=== PATIENT | female | born 1960 | race Caucasian/White ===

== ENCOUNTER 2020-03-06 06:51 | Emergency (ER) | payer BC ==
[~2020-03-06] VITALS: Ht 162.6 cm; Wt 60.8 kg
[2020-03-06 06:57] VITALS: BP_SYST 120
--- NOTE | 2020-03-06 07:00 | NUR ---
Patient to ER bed 3 to gown for evaluation. Side rails up.
--- NOTE | 2020-03-06 07:20 | NUR ---
Pt came to ER after becoming weak and altered while in the shower does not report pain. Pt calm and cooperaitve, AO4, VSS, awaiting MD
--- NOTE | 2020-03-06 07:30 | NUR ---
ER at bedside examining patient.
[2020-03-06 07:47] LABS: BASOPHILS % (AUTO) 0.7 % (0.0-2.0); EOSINOPHILS % (AUTO) 0.2 % (0.0-4.0); HEMATOCRIT 37.3 % (36-48); HEMOGLOBIN 12.5 g/dL (12.0-16.0); LYMPHOCYTES # (AUTO) 1.5 K/uL (1.0-5.5); LYMPHOCYTES % (AUTO) 30.1 % (20.5-51.5); MEAN CORPUSCULAR HEMOGLOBIN 30 pg (27-31); MEAN CORPUSCULAR HGB CONC 34 % (32-36); MEAN CORPUSCULAR VOLUME 88 fL (79.0-98.0); MONOCYTES # (AUTO) 0.5 K/uL (0.0-1.0); MONOCYTES % (AUTO) 10.7 % (1.7-9.3); NEUTROPHILS % (AUTO) 58.3 % (40.0-70.0); PLATELET COUNT (AUTO) 157 K/uL (130-430); RED BLOOD CELL COUNT(AUTO) 4.23 MIL/uL (4.2-6.2); RED CELL DISTRIBUTION WIDTH 13.2 % (9.0-15.0); WHITE BLOOD COUNT (AUTO) 5.1 K/uL (4.8-10.8)
[2020-03-06] MEDS: NACL 0.9% 1,000 ML IV ONE (07:50)
[2020-03-06 07:56] LABS: CALCIUM 8.4 mg/dL (8.4-11.0); CREATININE 0.86 mg/dL (0.55-1.30); POTASSIUM 3.9 mmol/L (3.5-5.1)
[2020-03-06 08:02] LABS: ALBUMIN 3.4 g/dL (3.4-4.8); TOTAL BILIRUBIN 0.2 mg/dL (0.0-1.0)
[2020-03-06 11:30] VITALS: BP_SYST 120
--- NOTE | 2020-03-06 11:31 | NUR ---
Patient given written and verbal discharge instructions and verbalizes understanding. ER MD discussed with patient the results and treatment provided. Patient in stable condition. ID arm band removed. IV catheter removed intact and dressing applied, no active bleeding. Rx of NONE given. Patient educated on pain management and to follow up with PMD. Pain Scale 0/10 Opportunity for questions provided and answered. Medication side effect fact sheet provided.
== END 2020-03-06 11:31 | disposition home or self-care (01) ==
LOC: SED 06:51
DX: R55 Syncope and collapse (principal)
CPT/HCPCS: 36415; 70450; 71045; 76376; 80053; 83605; 84484; 85025; 96360; 99285; J7030

== ENCOUNTER 2022-09-01 08:22 | Day surgery (SDC) | payer BC ==
[2022-09-01] MEDS ORDERED: PROPOFOL 200MG/ 20ML VIAL (DIPRIVAN) IV ONE (09:49)
[2022-09-01] MEDS ORDERED: OFLOXACIN 0.3%, 5 ML EAR DROPS ONE (09:49)
[2022-09-01] MEDS ORDERED: LIDOCAINE 1% 10 MG/ML, 20 ML MDV ONE (09:49)
[2022-09-01] MEDS ORDERED: KETOROLAC TROMETHAMINE 30 MG VIAL ONE (09:49)
[2022-09-01] MEDS ORDERED: ONDANSETRON HCL 4 MG/2 ML VIAL ONE (09:49)
[2022-09-01] MEDS ORDERED: LR 1,000 ML IV.SOLN IV ONE (09:49)
[2022-09-01] MEDS ORDERED: SEVOFLURANE 15 MIN GAS INH ONE (09:49)
[2022-09-01] MEDS ORDERED: NS IRRIG SOLN 1000 ML IR ONE (09:49)
[2022-09-01] MEDS ORDERED: METOCLOPRAMIDE HCL 10 MG/2 ML VIAL ONE (09:49)
[2022-09-01] MEDS ORDERED: LR 1,000 ML IV SCH (10:30)
[2022-09-01] MEDS ORDERED: ACETAMINOPHEN 500 MG TABLET PO PRN (10:30)
[2022-09-01] MEDS ORDERED: ONDANSETRON HCL 4 MG/2 ML VIAL IVP PRN ×2 (10:30)
[2022-09-01] MEDS ORDERED: ONDANSETRON 4 MG ODT TAB PO PRN (10:30)
[2022-09-01] MEDS ORDERED: KETOROLAC TROMETHAMINE 30 MG VIAL IVP PRN (10:30)
[2022-09-01 12:00] VITALS: BP_SYST 120
== END 2022-09-01 12:00 | disposition home or self-care (01) ==
LOC: SDS 08:22 → SMU 08:23 → SDS 12:00
PROVIDERS: ATTEND Otolaryngology
DX: H65.491 Other chronic nonsuppurative otitis media, right ear (principal)
CPT/HCPCS: 69436; J1885; J2001; J2765; J2405; J2704; J7120; L8699